=== PATIENT | female | born 1990 | race Caucasian/White ===

== ENCOUNTER 2018-06-15 05:53 | Observation (INO) | payer OTHER ==
[2018-06-14 10:31] VITALS: BMI 23.6
[2018-06-15] MEDS ORDERED: Fentanyl 100 MCG/2 ML VIAL ONE (06:23)
[2018-06-15] MEDS ORDERED: Dexamethasone 4 mg/ml Vial ONE (06:23)
[2018-06-15] MEDS ORDERED: Midazolam HCl 2 mg/2 ml Vial ONE (06:23)
[2018-06-15] MEDS ORDERED: HYDROcodone/Acetaminophen 7.5/325 mg Tablet PO PRN ×2 (07:10)
[2018-06-15] MEDS ORDERED: Morphine 4 MG/ML VIAL SLOW IVP PRN (07:10)
[2018-06-15] MEDS ORDERED: Morphine 2 MG/ML SYRINGE SLOW IVP PRN (07:10)
[2018-06-15] MEDS ORDERED: traMADol HCl 50 MG TAB PO PRN ×5 (07:10→12:19)
[2018-06-15] MEDS ORDERED: Ondansetron PF 4 MG/2 ML Vial IVP PRN ×3 (07:10→12:19)
[2018-06-15] MEDS ORDERED: Acetaminophen 500 MG TAB PO PRN (07:10)
[2018-06-15] MEDS ORDERED: Milk Of Magnesia 30 ML UDCUP PO PRN (07:10)
[2018-06-15] MEDS ORDERED: diphenhydrAMINE 50 MG CAP PO PRN (07:10)
[2018-06-15] MEDS ORDERED: Bisacodyl 10 MG SUPP PR PRN (07:10)
[2018-06-15] MEDS ORDERED: Methocarbamol 500 MG TAB PO PRN (07:10)
[2018-06-15] MEDS ORDERED: BIRTHCONTROL PO SCH (09:00)
[2018-06-15] MEDS ORDERED: HYDROcodone/Acetaminophen 10/325 mg Tablet PO PRN ×4 (09:08→12:19)
[2018-06-15] MEDS ORDERED: Zolpidem Tartrate 5 MG TAB PO PRN ×2 (09:08→12:19)
[2018-06-15] MEDS ORDERED: Ropivacaine 0.2% 550 ML 550 ML NERVE BLCK SCH ×2 (09:08→12:19)
[2018-06-15] MEDS ORDERED: Promethazine HCl 25 MG/ML VIAL IM PRN ×2 (09:08→12:19)
[2018-06-15] MEDS ORDERED: Fentanyl 100 MCG/2 ML VIAL IV PRN ×2 (09:10→12:26)
[2018-06-15] MEDS: Dextrose 5 %-0.45 % NaCl 1,000 ML IV SCH ×2 (11:47→16:44)
[2018-06-15] MEDS: Famotidine 20 MG TAB PO SCH ×2 (11:47→20:38)
[2018-06-15] MEDS: Ketorolac Tromethamine 30 MG/ML VIAL IVP SCH ×3 (11:52→23:38)
[2018-06-15] MEDS ORDERED: Ketorolac Tromethamine 30 MG/ML VIAL IVP PRN (12:19)
[2018-06-15] MEDS ORDERED: Ropivacaine 0.5% HCl/PF (150 MG/30 ML VIAL) ONE ×2 (15:16)
[2018-06-15] MEDS ORDERED: Ketorolac Tromethamine 30 MG/ML VIAL ONE (15:25)
[2018-06-15] MEDS ORDERED: PROPOFOL 200 MG/20 ML VIAL ONE (15:25)
[2018-06-15] MEDS ORDERED: Ondansetron PF 4 MG/2 ML Vial ONE (15:25)
[2018-06-15] MEDS ORDERED: Lidocaine 1% PF 5 ML VIAL ONE (15:25)
[2018-06-15] MEDS: CEFAZOLIN 2 GM in Premix Bag 1 BAG IVPB SCH ×2 (15:47→23:37)
--- NOTE | 2018-06-15 17:13 | OP ---
DATE OF PROCEDURE: 06/15/2018 PREOPERATIVE DIAGNOSIS: Right knee anterior cruciate ligament tear. POSTOPERATIVE DIAGNOSIS: Right knee anterior cruciate ligament tear. PROCEDURES PERFORMED: 1. Right knee exam under anesthesia. 2. Right knee arthroscopy with arthroscopically assisted anterior cruciate ligament reconstruction using autologous patellar tendon graft. OFFICE CLINICIAN: Cristi Serrano PA-C. BLOOD LOSS: Minimal. COMPLICATIONS: None. ANESTHESIA: She had a preoperative block as well as the general anesthetic. IMPLANTS: The right knee is a metal 7 x 25 interference screw on the femur, bicortical screw with a smooth washer on the tibia. DISPOSITION: She did go to recovery in stable condition. INDICATIONS: A 27-year-old female, who injured her right knee playing soccer about 2 to 3 weeks ago and at this time is presenting for reconstruction. DESCRIPTION OF PROCEDURE: After all appropriate consent forms were explained and signed, she was taken to the operative room and at this time was given general anesthetic. Once the level of anesthesia was appropriate. Tourniquet was placed on the right thigh and exam under anesthesia was performed. Positive Jose's was noted. The leg was then placed in arthroscopic leg mcgee. The limb was then prepped and draped in standard surgical fashion. The limb was exsanguinated and the tourniquet was taken up to 300 mmHg. Midline incision was made with 10 blade down through skin. Bovie was used to coagulate any brisk venous bleeding. New blade was used to take paratenon off the underlying patellar tendon, and a central third patellar tendon graft was harvested with a double 10 blade saw and osteotome. Multiple Vicryl sutures were used to loosely close our graft site. Inferolateral portal was established. Scope was placed into the knee joint. Needle localization technique was then used to make a medial working portal. Diagnostic arthroscopy commenced. The ACL was found to be torn. PCL was intact. Remnant of the ACL was removed. At this time, the medial compartment was evaluated. Femur, tibia, and medial meniscus were probed, found to be intact. The lateral compartment was then evaluated and found to be intact. The gutters were swept through, and no loose bodies were noted. At this time, notchplasty was performed while the graft was made to the femur size 9, tibia size 10. At this time, through the medial portal an [id number] guide was placed, a pin was placed up and out the anterolateral thigh. A 9-mm reamer was used to ream our tibial tunnel to the depth of nearly 30. At this time, all loose bony cartilaginous debris was removed from the knee joint. Tibial guide set at 52.5 degrees was then placed to the knee joint, and a pin was placed up into the knee joint. A 10-mm reamer was then used to ream our tibial tunnel. Again, all loose bony cartilaginous debris was removed from the knee joint. All edges were smoothed off with a rasp and rickey. All soft tissue was removed from the orifice. At this time, we went dry. We then flexed the knee up, placed a pin up and out the anterolateral thigh using this to pull our passing suture into the knee joint. This was then pulled through the tibial tunnel and used to pull our graft up into the knee joint. A 7 x 25 metal interference screw was then used to fix our femoral side. We then drilled, tapped and placed a bicortical screw with a smooth washer and tied our strings around this with the knee in essentially full extension and posterior drawer being applied. At this time under direct visualization, the knee was taken through full range of motion. The graft was found to go through 3 to 5 degrees of hyperextension and full flexion without any direct impingement. The scope was removed and knee was drained. At this time, our patellar and tibial sites were bone grafted. We then ran a Vicryl to close our paratenon, 2-0 Vicryl and Stratafix suture were placed underneath to close skin. Surgicel skin glue was then used on top. Once this was done, the tourniquet was let down. Toes pinked up nicely. The patient had a bulky sterile dressing applied. She was then awakened, taken to recovery room in stable condition. All counts were correct at the end of the case and she did receive preoperative IV antibiotics. Job ID: [id number]
[2018-06-16] MEDS: Dextrose 5 %-0.45 % NaCl 1,000 ML IV SCH (03:27)
[2018-06-16 03:58] VITALS: BP 124/76; TEMP 98.4
[2018-06-16] MEDS: Ketorolac Tromethamine 30 MG/ML VIAL IVP SCH (06:38)
== END 2018-06-16 07:53 | disposition home or self-care (01) ==
LOC: SDC 05:53 → SURG B 10:47
PROVIDERS: ADMIT Orthopaedic Surgery; ATTEND Orthopaedic Surgery
PROC: 0MQN4ZZ Repair Right Knee Bursa and Ligament, Percutaneous Endoscopic Approach (ICD-10-PCS; principal; 2018-06-16)
DX: S83.511A Sprain of anterior cruciate ligament of right knee, initial encounter (principal); X50.0XXA Overexertion from strenuous movement or load, initial encounter; Y93.66 Activity, soccer
CPT/HCPCS: 96365; 96366; 96375; 96376; A4306; C1713; G0378; J0690; J1100; J1885; J2001; J2250; J2405; J2704; J2795; J3010